=== PATIENT | female | born 1985 | race Asian ===

== ENCOUNTER 2017-12-11 06:56 | Inpatient (IN) | END 2017-12-14 14:15 | disposition home or self-care (01) | DRG 766 ==

== ENCOUNTER 2019-03-28 07:21 | Emergency (ER) | payer BC, OTHER ==
[~2019-03-28] VITALS: Ht 160 cm; Wt 75.0 kg
[~2019-03-28 07:21] MED LIST: IBUP-1542 PO
[2019-03-28 07:24] VITALS: BP 163/78; PULSE 90; RESP 18; Ht 160 cm; Wt 75.0 kg
[2019-03-28] MEDS ORDERED: KETOROLAC 30 MG INJ IM STA (08:11)
== END 2019-03-28 09:44 | disposition home or self-care (01) ==
LOC: FTE 07:21
DX: M79.671 Pain in right foot (principal); Z91.040 Latex allergy status
CPT/HCPCS: 73630; 81025; J1885; 96372